=== PATIENT | male | born 1930 | race Caucasian/White ===

== ENCOUNTER 2016-09-10 08:40 | Observation (INO) | payer BC ==
[~2016-09-10] VITALS: Ht 185.4 cm; Wt 86.6 kg
[~2016-09-10 08:40] MED LIST: FEMIRON20 MG; NO HOME MEDICATIONS; RAZADYNE ER24 MG PO; TOPROL XL50 MG PO
[2016-09-10 09:25] VITALS: BP 117/58; PULSE 68
[2016-09-10 09:30] LABS: ALANINE AMINOTRANSFERASE 28 U/L (21-72); ALBUMIN 3.7 gm/dL (3.5-5.0); ALKALINE PHOSPHATASE 41 U/L (50-136); ANION GAP 13 mmol/L (7-16); BILIRUBIN,TOTAL 1.2 mg/dL (0.0-1.0); BLOOD UREA NITROGEN 22 mg/dL (9-20); CALCIUM 8.8 mg/dL (8.4-10.2); CARBON DIOXIDE 23 mmol/L (22-30); CHLORIDE 104 mmol/L (98-107); CREATININE, serum 1.02 mg/dL (0.66-1.25); GLUCOSE 129 mg/dL (74-106); INR 1.2 (0.8-3.0); POTASSIUM 3.7 mmol/L (3.4-5.0); PROTHROMBIN TIME 13.8 SECONDS (9.7-12.8); SODIUM 140 mmol/L (137-145); TOTAL PROTEIN 6.8 gm/dL (6.4-8.2)
[2016-09-10 09:33] LABS: PARTIAL THROMBOPLASTIN TIME 24.7 SECONDS (26.0-37.0)
[2016-09-10 09:42] LABS: TROPONIN-I < 0.012 ng/mL (0.000-0.034)
[2016-09-10 10:07] LABS: BASO % 0.3 % (0.0-2.0); EOS # 0.2 (0.0-0.7); EOS % 1.4 % (0-4.0); GRAN # 10.7 (1.4-6.5); GRAN % 81.6 % (42.2-75.2); LYMPH # 0.9 (1.2-3.4); LYMPH % 6.5 % (20.0-51.0); MEAN CELL VOLUME 86 fl (80.0-100.0); MEAN CORPUSCULAR HGB CONC 32 g/dl (33.0-37.0); MEAN PLATELET VOLUME 10.6 fl (7.4-10.4); MONO # 1.3 (0.1-0.6); MONO % 9.7 % (1.7-9.3); PLATELET COUNT 145 K/mm3 (130-400); RED BLOOD COUNT 4.15 M/mm3 (4.20-5.60); REDCELL DISTRIBUTION WIDTH-CV 16.5 % (11.5-14.5); WHITE BLOOD COUNT 13.1 K/mm3 (4.8-10.8)
[2016-09-10 10:24] LABS: HEMATOCRIT 35.6 % (42.0-52.0); HEMOGLOBIN 11.5 g/dl (13.5-18.0); MEAN CORPUSCULAR HEMOGLOBIN 28 pg (27.0-31.0)
[2016-09-10 12:48] VITALS: BP 143/80; PULSE 59; TEMP 97.4
[2016-09-10 12:49] VITALS: BP 143/80; PULSE 59; TEMP 97.4
[2016-09-10 16:18] VITALS: BP 135/62; PULSE 80; TEMP 98.8
[2016-09-10 21:34] VITALS: BP 119/59; PULSE 61; TEMP 98.5
[2016-09-11 01:11] VITALS: BP 108/48; PULSE 53; TEMP 98.5
[2016-09-11 04:23] VITALS: BP 112/98; PULSE 56; TEMP 98.6
[2016-09-11 04:36] LABS: PH 6 (5-8); SQUAMOUS EPITHELIAL None Seen /hpf; URINE APPEARANCE Clear; URINE BACTERIA None Seen /hpf; URINE BILIRUBIN Negative (NEGATIVE); URINE BLOOD 1+ (NEGATIVE); URINE COLOR Yellow; URINE GLUCOSE Negative (NEGATIVE); URINE KETONE Trace (NEGATIVE); URINE UROBILINOGEN Negative (NEGATIVE); URINE WBC 0-2 /hpf
[2016-09-11 06:39] LABS: BASO # 0.1 (0.0-0.2); BASO % 0.6 % (0.0-2.0); EOS # 0.6 (0.0-0.7); EOS % 6.5 % (0-4.0); GRAN # 5.4 (1.4-6.5); GRAN % 64.2 % (42.2-75.2); LYMPH # 1.5 (1.2-3.4); LYMPH % 17.5 % (20.0-51.0); MEAN CELL VOLUME 85 fl (80.0-100.0); MEAN CORPUSCULAR HGB CONC 33 g/dl (33.0-37.0); MEAN PLATELET VOLUME 10.7 fl (7.4-10.4); MONO # 0.9 (0.1-0.6); MONO % 10.8 % (1.7-9.3); PLATELET COUNT 158 K/mm3 (130-400); RED BLOOD COUNT 3.91 M/mm3 (4.20-5.60); REDCELL DISTRIBUTION WIDTH-CV 16.7 % (11.5-14.5); WHITE BLOOD COUNT 8.5 K/mm3 (4.8-10.8)
[2016-09-11 06:40] LABS: HEMATOCRIT 33.4 % (42.0-52.0); HEMOGLOBIN 10.9 g/dl (13.5-18.0); MEAN CORPUSCULAR HEMOGLOBIN 28 pg (27.0-31.0)
[2016-09-11 07:05] LABS: TROPONIN-I 0.019 ng/mL (0.000-0.034)
[2016-09-11 07:51] VITALS: BP 114/61; PULSE 63; TEMP 97.9
== END 2016-09-11 15:55 | disposition home or self-care (01) ==
LOC: COL.ER 08:40 → MEDICAL 11:55
PROVIDERS: Emergency Medicine; Internal Medicine
DX: R55 Syncope and collapse (principal); F03.90 Unspecified dementia, unspecified severity, without behavioral disturbance, psychotic disturbance, mood disturbance, and anxiety; D72.829 Elevated white blood cell count, unspecified
CPT/HCPCS: G0378; G8978-GP; G8979-GP; G8987-GO; G8988-GO; G9168-GN; G9169-GN; J1650; J7030; Q9967

== ENCOUNTER 2018-01-19 18:42 | Emergency (ER) | payer BC ==
[2018-01-19 18:47] VITALS: BP 156/86; TEMP 97.7
[2018-01-19 22:58] VITALS: PULSE 59
== END 2018-01-19 22:58 | disposition home or self-care (01) ==
LOC: COL.ER 18:42
DX: K56.41 Fecal impaction (principal)

== ENCOUNTER 2018-11-01 00:11 | Emergency (ER) | payer BC ==
[~2018-11-01] VITALS: Ht 185.4 cm; Wt 63.6 kg
[2018-11-01 00:26] LABS: BASO # 0.1 (0.0-0.2); BASO % 0.8 % (0.0-2.0); EOS # 0.4 (0.0-0.7); EOS % 5.4 % (0-4.0); GRAN # 3.2 (1.4-6.5); GRAN % 44.7 % (42.2-75.2); HEMOGLOBIN 11.5 g/dl (13.5-18.0); LYMPH # 2.6 (1.2-3.4); LYMPH % 36.5 % (20.0-51.0); MEAN CELL VOLUME 89 fl (80.0-100.0); MEAN CORPUSCULAR HEMOGLOBIN 28 pg (27.0-31.0); MEAN CORPUSCULAR HGB CONC 32 g/dl (33.0-37.0); MEAN PLATELET VOLUME 10.2 fl (7.4-10.4); MONO # 0.9 (0.1-0.6); MONO % 12.2 % (1.7-9.3); PLATELET COUNT 173 K/mm3 (130-400); RED BLOOD COUNT 4.07 M/mm3 (4.20-5.60); REDCELL DISTRIBUTION WIDTH-CV 14.2 % (11.5-14.5)
[2018-11-01 00:27] LABS: HEMATOCRIT 36.1 % (42.0-52.0)
[2018-11-01 00:32] LABS: ALANINE AMINOTRANSFERASE 16 U/L (21-72); ALBUMIN 3.1 gm/dL (3.5-5.0); ALKALINE PHOSPHATASE 66 U/L (50-136); ANION GAP 7 mmol/L (7-16); AST,SGOT 26 U/L (15-37); BILIRUBIN,TOTAL 0.3 mg/dL (0.0-1.0); BLOOD UREA NITROGEN 24 mg/dL (9-20); CALCIUM 8.9 mg/dL (8.4-10.2); CARBON DIOXIDE 27 mmol/L (22-30); CHLORIDE 105 mmol/L (98-107); CREATINE KINASE 60 U/L (55-170); CREATININE, serum 1.25 (0.66-1.25); GLUCOSE 118 mg/dL (74-106); LIPASE 84 U/L (23-300); POTASSIUM 3.9 mmol/L (3.4-5.0); SODIUM 140 mmol/L (137-145); TOTAL PROTEIN 6.3 gm/dL (6.4-8.2)
[2018-11-01 00:44] LABS: TROPONIN-I < 0.012 ng/mL (0.000-0.035)
[2018-11-01 02:17] LABS: COLLECTION METHOD CLEAN CATCH
[2018-11-01 02:23] LABS: MUCOUS Present /lpf; PH 7 (5-8); SQUAMOUS EPITHELIAL None Seen /hpf; URINE APPEARANCE Clear; URINE BACTERIA None Seen /hpf; URINE BILIRUBIN Negative (NEGATIVE); URINE BLOOD Negative (NEGATIVE); URINE COLOR Yellow; URINE GLUCOSE Negative (NEGATIVE); URINE KETONE Negative (NEGATIVE); URINE LEUKOCYTE ESTERASE Negative (NEGATIVE); URINE NITRATE Negative (NEGATIVE); URINE PROTEIN(semi-quant) Negative (NEGATIVE); URINE RBC 0-2 /hpf; URINE UROBILINOGEN Negative (NEGATIVE)
[2018-11-01 02:42] VITALS: BP 134/75; PULSE 66
== END 2018-11-01 02:42 | disposition home or self-care (01) ==
LOC: COL.ER 00:11
PROVIDERS: Emergency Medicine
DX: R55 Syncope and collapse (principal); R00.1 Bradycardia, unspecified; G30.9 Alzheimer's disease, unspecified; F02.80 Dementia in other diseases classified elsewhere, unspecified severity, without behavioral disturbance, psychotic disturbance, mood disturbance, and anxiety; Z90.89 Acquired absence of other organs

== ENCOUNTER → 2020-07-04 | Outpatient (CLI) | payer BC | LOC: COL.VAS 09:57 | DX: I82.462 Acute embolism and thrombosis of left calf muscular vein (principal); I82.412 Acute embolism and thrombosis of left femoral vein ==

== ENCOUNTER 2021-03-10 12:13 | Outpatient (CLI) | payer BC ==
[~2021-03-10] VITALS: Ht 185.4 cm; Wt 78.4 kg
[2021-03-10 12:44] VITALS: BP 145/81; PULSE 48; TEMP 97.8
[2021-03-10 14:04] VITALS: BP 145/65; PULSE 62
[2021-03-10 14:15] VITALS: BP 130/60; PULSE 42
[2021-03-10 14:30] VITALS: BP 131/74; PULSE 40
[2021-03-10 15:00] VITALS: BP 131/74; PULSE 50
--- NOTE | 2021-03-10 15:24 | NUR ---
Discharge instructons given to pt.Pt verbalizes understanding.pt escorted out to [facility].
== END 2021-03-10 15:27 ==
LOC: COL.RAD 12:13
DX: G31.84 Mild cognitive impairment of uncertain or unknown etiology (principal)